=== PATIENT | male | born 1960 | race Caucasian/White ===

== ENCOUNTER → 2017-02-04 | Day surgery (SDC) | payer MEDICARE ==
[~2017-02-04] VITALS: Ht 175.2 cm; Wt 108.9 kg
[~2017-02-04] MED LIST: AUGMENTIN 875 M1 TAB PO; AUGMENTIN 875875 MG PO; AUGMENTIN XR 101 TER PO; CLARITIN10 MG PO; CYCLOBENZAPRINE10 MG PO; FLEXERIL5 MG PO; FLONASE ALLERG9.9 ML NAS; FLONASE0.05 MG/AC NS; LEVOFLOXACIN500 MG PO; MOTRIN800 MG PO; NKHM; OMEPRAZOLE40 MG PO; PREDNICOT20 MG PO; PREDNISONE10 MG PO; ROBITUSSIN DM 105 ML PO; ULTRAM50 MG PO; VENTOLIN H0.09 MG/AC INH; VICODIN 500 MG-1 TAB PO; VITAMIN D5000 I3 PO; ZYRTEC10 MG PO
--- NOTE | ~2017-02-04 | O ---
[place], [place] OPERATIVE NOTE NAME: ERICA WORTHY UNIT #: [id number] ROOM: DOCTOR: WANDA FORD MD BIRTHDATE: [birth year] DOS: 02/04/2017 GASTROENDOSCOPIC REPORT INDICATIONS: The patient has presented with multiple medical problems, among which has been hepatitis C and alcohol consumption epigastric distress. ALLERGIES: MORPHINE. PAST MEDICAL HISTORY: Vitamin D deficiency. PAST SURGICAL HISTORY: Left eye and cholecystectomy. PROCEDURE: Today's procedure part of investigation is panendoscopy and colonoscopy. PREMEDICATION: Versed and Diprivan. SCOPE: Olympus forward-viewing gastroscope Q10 video. REPORT: After putting the patient in the left lateral position and after application of lubricant to the scope, the scope was introduced. Thereafter, under direct visualization, I advanced through the length of esophagus without difficulty. Gastric pouch was entered. Evidence of diffuse gastritis superficial hemorrhagic gastritis noticed. Antral ulcer was identified. Duodenal bulb was entered multiple duodenal ulcers identified. Photographs of Antral biopsy obtained. The patient was gradually extubated and tolerated the procedure well. IMPRESSION: Superficial hemorrhagic gastritis, antral ulcer, multiple duodenal ulcers. PLAN AND DISCUSSION: Omeprazole 40 mg 1 daily and on the other hand we are going to proceed with colonoscopy. [place], [place] OPERATIVE NOTE NAME: ERICA WORTHY UNIT #: [id number] ROOM: DOCTOR: WANDA FORD MD BIRTHDATE: [birth year] WANDA FORD MD CM:OPRECORD:OPERATIVE NOTE 1538 [id number] WANDA FORD MD 02/04/17 1658 interface
--- NOTE | ~2017-02-04 | O ---
[place], [place] OPERATIVE NOTE NAME: ERICA WORTHY UNIT #: [id number] ROOM: DOCTOR: WANDA FORD MD BIRTHDATE: [birth year] DOS: 02/04/2017 GASTROENDOSCOPIC REPORT PROCEDURE: Today's procedure part of investigation is colonoscopy. PREMEDICATION: Versed and Diprivan. SCOPE: Olympus folding colonoscope 10L video. REPORT: After putting the patient in the left lateral position and after application of lubricant to the scope, the scope was introduced. Thereafter, under direct visualization, I advanced through the length of colon without difficulty. Base of the cecum explored, appendiceal orifice identified, and ileocecal valve was defined. Scope was gradually withdrawn from ascending, transverse, descending colon. Sessile polypoid lesion from the base of cecum has already been removed. Another polypoid lesion in the rectal pouch with the snare was entirely removed. The patient extubated tolerated the procedure well. IMPRESSION: Rectal pouch polyp, status post snare polypectomy. Sessile polypoid lesion cecal status post four piecemeal polypectomy. PLAN: High fiber diet management of ulcers and upper GI tract and clinical reassessment. WANDA FORD MD CM:OPRECORD:OPERATIVE NOTE 1538 170 WANDA FORD MD 02/04/17 1701 interface
[2017-02-04 13:00] VITALS: BP 136/69
[2017-02-04 15:32] VITALS: BP 117/70
[2017-02-04 15:47] VITALS: BP 117/75
[2017-02-04 16:02] VITALS: BP 111/54
== END | disposition home or self-care (01) ==
LOC: SDC 01-31 11:00
DX: D12.0 Benign neoplasm of cecum (principal); K62.1 Rectal polyp; K29.51 Unspecified chronic gastritis with bleeding; K25.9 Gastric ulcer, unspecified as acute or chronic, without hemorrhage or perforation; K26.9 Duodenal ulcer, unspecified as acute or chronic, without hemorrhage or perforation; K74.60 Unspecified cirrhosis of liver; B19.20 Unspecified viral hepatitis C without hepatic coma; E55.9 Vitamin D deficiency, unspecified; F17.210 Nicotine dependence, cigarettes, uncomplicated; F10.20 Alcohol dependence, uncomplicated

== ENCOUNTER 2017-03-26 01:37 | Emergency (ER) | payer MEDICARE ==
[~2017-03-26] VITALS: Ht 175.2 cm; Wt 107.5 kg
[2017-03-26 02:40] LABS: BILIRUBIN 2+ (NEGATIVE); BLOOD NEGATIVE (NEGATIVE); CLARITY SL CLOUDY (CLEAR); COLOR YELLOW (YELLOW); GLUCOSE NEGATIVE (NEGATIVE); KETONE TRACE (NEGATIVE); LEUKO ESTERASE NEGATIVE (NEGATIVE); NITRITE POSITIVE (NEGATIVE); PROTEIN 1+ (NEGATIVE); SPECIFIC GRAVITY 1.025 (1.005-1.030)
[2017-03-26 02:41] LABS: BASO # 0.1 10*3/uL (0.0-0.1); BASO % 0.7 % (0.0-1.0); EOS # 0.2 10*3/uL (0.0-0.4); EOS % 1.5 % (1.0-4.0); HEMATOCRIT 44.4 % (42.0-52.0); HEMOGLOBIN 14.9 g/dl (14.0-18.0); LYMPH % 9.4 % (27.0-41.0); MEAN CELL VOLUME 85.5 fl (80.0-94.0); MEAN CORPUSCULAR HGB 28.7 pg (27.0-31.0); MEAN CORPUSCULAR HGB CONC 33.6 g/dl (33.0-37.0); MEAN PLATELET VOLUME 11.1 fl (9.6-12.3); MONO # 0.5 10*3/uL (0.1-1.0); MONO % 4.9 % (3.0-9.0); NEUT # 8.6 10*3/uL (2.3-7.9); NEUT % 83.3 % (47.0-73.0); PLATELET COUNT AUTOMATED 105 10*3/uL (130-400); RED BLOOD COUNT 5.19 10*6/uL (4.50-5.90); RED CELL DISTRI WIDTH 14.5 % (0-14.5); WHITE BLOOD COUNT 10.3 10*3/uL (4.8-10.8)
[2017-03-26 02:57] LABS: ALBUMIN 3.8 gm/dl (3.1-4.5); ALKALINE PHOSPHATASE 137 U/L (45-117); BILIRUBIN, TOTAL 1.1 mg/dl (0.2-1.0); BUN 12 mg/dl (7-24); CARBON DIOXIDE 24 mmol/L (21-32); CHLORIDE 108 mmol/L (98-107); EST GLOM FILT AFRICAN AMERICAN > 60 ml/min; GLUCOSE 128 mg/dL (65-99); POTASSIUM 4.3 mmol/L (3.5-5.1); SGOT/AST 52 IU/L (3-35); SGPT/ALT 68 U/L (12-78); SODIUM 144 mmol/L (136-145); TOTAL PROTEIN 8.5 gm/dL (6.4-8.2)
[2017-03-26 02:58] LABS: MUCOUS 1+; RBC 0-2 rbc/hpf (0-2); WBC 0-2 wbc/hpf (0-5)
[2017-03-26 02:59] LABS: BACTERIA TRACE; URINE REFLEX COMMENT YES (NO)
== END 2017-03-26 05:24 | disposition home or self-care (01) ==
LOC: ED 01:37
PROVIDERS: Emergency Medicine
DX: K52.9 Noninfective gastroenteritis and colitis, unspecified (principal); E86.0 Dehydration; F17.200 Nicotine dependence, unspecified, uncomplicated; Z87.19 Personal history of other diseases of the digestive system; Z88.6 Allergy status to analgesic agent; Z79.899 Other long term (current) drug therapy

== ENCOUNTER → 2017-06-13 | Outpatient (CLI) | payer MEDICARE | END | disposition home or self-care (01) | LOC: RESCLI 01:41 | DX: K21.9 Gastro-esophageal reflux disease without esophagitis (principal); J06.9 Acute upper respiratory infection, unspecified; B97.89 Other viral agents as the cause of diseases classified elsewhere; F17.200 Nicotine dependence, unspecified, uncomplicated; E66.01 Morbid (severe) obesity due to excess calories; Z71.6 Tobacco abuse counseling; Z90.49 Acquired absence of other specified parts of digestive tract ==

== ENCOUNTER 2017-06-20 14:46 | Inpatient (IN) | payer MEDICARE ==
[~2017-06-20] VITALS: Ht 175.2 cm; Wt 113.9 kg
--- NOTE | ~2017-06-20 | ST ---
[place], [place] EXERCISE STRESS TEST REPORT [facility]: [facility] [id number] UNIT #: [id number] ROOM: 407 DOCTOR: REMEDIOS PARTIDA MD BIRTHDATE: [birth year] DOS: 06/22/2017 INDICATION: Chest pain. PROCEDURE: The patient was exercised on a modified Levi protocol, the patient exercised for 6 minutes and 30 seconds. Test was terminated due to achievement of stress test and end of Lexiscan injection. No complaint of chest pain, chest pressure, heaviness or tightness. BLOOD PRESSURE RESPONSE: Resting blood pressure 110/68 with ending blood pressure 140/68. ELECTROCARDIOGRAM INTERPRETATION: The resting electrocardiogram showing sinus bradycardia, heart rate of 52. There is poor R wave progression. At the peak of the stress test, there was no evidence of any significant ST or T-wave changes suggestive of myocardial ischemia. No arrhythmias were noted. SUMMARY: 1. Adequate walking Lexiscan stress test. 2. Negative Lexiscan stress test for stress induced myocardial ischemia. 3. No arrhythmias were noted. 4. Stable O2 saturation with exercise. 5. Myoview results will be reported separately. REMEDIOS PARTIDA MD CM:STRESS:EXERCISE STRESS TEST REPORT 1032 [id number] REMEDIOS PARTIDA MD
--- NOTE | ~2017-06-20 | PR ---
[place], [place] PROGRESS NOTE NAME: ERICA WORTHY UNIT #: [id number] ROOM: 407 DOCTOR: REMEDIOS PARTIDA MD BIRTHDATE: [birth year] DOS: SUBJECTIVE: The patient is today seen in the stress lab, apparently he has significant improvement from yesterday. He has continued to cough which is nonproductive. It is almost complete resolution of his chest pain and heaviness. His shortness of breath significantly improved. No symptomatic palpitation. OBJECTIVE: VITAL SIGNS: Blood pressure 102/50, heart rate 55, respiratory rate of 18, temperature 98.3. NECK: Good upstroke, no bruit. HEART: S1, S2 with no rub. LUNGS: Clear to auscultation, slight decrease in air movement. LOWER EXTREMITIES: There is mild ankle edema. LABORATORY DATA: White count 9.1. There are 90% neutrophils. Potassium 4.1, magnesium 2.4, troponin less than 0.015 x 3. ASSESSMENT AND PLAN: Presentation with chest pain, so far, cardiac enzymes have been negative. The patient continued to cough. There is significant improvement while on antibiotics. I will proceed to re-oral as sed rate and CRP to confirm patient's infectious status. Patient today walked on a modified Levi protocol in the stress level. He was able to walk for 6 minutes and 30 seconds without any provoked cardiac arrhythmias or EKG changes. His O2 sat state above 95% with activity. As noted above, the patient reported significant improvement on his symptoms with antibiotics. No worsening chest pain. His vital sign does not allow any introduction of repair of any medications such as beta-kwaku or nitrites. Enteric-coated aspirin 81 mg should be held in view of patient's low platelets. Smoking cessation was emphasized. Sleep study is recommended as an outpatient. The patient can be discharged home should the stress test. Should the nuclear images be normal. Followup can be in outpatient within 2-3 months or earlier should there be any recurrence of his complaints. [place], [place] PROGRESS NOTE NAME: ERICA WORTHY UNIT #: [id number] ROOM: 407 DOCTOR: REMEDIOS PARTIDA MD BIRTHDATE: [birth year] REMEDIOS PARTIDA MD CM:NANCY 1030 17 REMEDIOS PARTIDA MD 06/22/172117 interface
--- NOTE | ~2017-06-20 | CON ---
[place], [place] REPORT OF CONSULTATION NAME: ERICA WORTHY UNIT #: [id number] ROOM: 407 DOCTOR: REMEDIOS PARTIDA MD BIRTHDATE: [birth year] DOS: ADDENDUM. The patient was seen and evaluated by myself. Notes and labs were reviewed. The above assessment and plan were done under my direct participation. 1. The patient's chest pain, most likely shortness of breath and possible pneumonia. 2. Sed rate will be ordered along with CRP. 3. Echocardiogram with a stress test will be done in a.m. walking on a modified Levi protocol with O2 sat check. 4. Smoking cessation is vital. 5. Sleep study is recommended as an outpatient. REMEDIOS PARTIDA MD CM:CONSTR:REPORT OF CONSULTATION 1027 06/23/17 1611 interface
[2017-06-20 15:00] VITALS: BP 110/61
[2017-06-20 15:36] LABS: BASO # 0.1 10*3/uL (0.0-0.1); BASO % 0.7 % (0.0-1.0); EOS # 0.2 10*3/uL (0.0-0.4); EOS % 2.8 % (1.0-4.0); HEMATOCRIT 37.5 % (42.0-52.0); HEMOGLOBIN 12.3 g/dl (14.0-18.0); LYMPH % 28.2 % (27.0-41.0); MEAN CELL VOLUME 87.8 fl (80.0-94.0); MEAN CORPUSCULAR HGB 28.8 pg (27.0-31.0); MEAN CORPUSCULAR HGB CONC 32.8 g/dl (33.0-37.0); MEAN PLATELET VOLUME 11.4 fl (9.6-12.3); MONO # 0.6 10*3/uL (0.1-1.0); MONO % 7.6 % (3.0-9.0); NEUT # 4.4 10*3/uL (2.3-7.9); NEUT % 60.3 % (47.0-73.0); PLATELET COUNT AUTOMATED 100 10*3/uL (130-400); RED BLOOD COUNT 4.27 10*6/uL (4.50-5.90); RED CELL DISTRI WIDTH 14.3 % (0-14.5); WHITE BLOOD COUNT 7.2 10*3/uL (4.8-10.8)
[2017-06-20 15:49] LABS: ACT PARTIAL THROMBO TIME 26.9 SECONDS (20.8-31.5)
[2017-06-20 15:55] LABS: ALBUMIN 3.1 gm/dl (3.1-4.5); ALKALINE PHOSPHATASE 111 U/L (45-117); BUN 13 mg/dl (7-24); CHLORIDE 109 mmol/L (98-107); CREATININE 0.94 mg/dL (0.70-1.30); MAGNESIUM 2.5 mg/dL (1.5-2.1); POTASSIUM 4.3 mmol/L (3.5-5.1); SGOT/AST 32 IU/L (3-35); SGPT/ALT 26 U/L (12-78); SODIUM 141 mmol/L (136-145)
[2017-06-20 15:58] LABS: TROPONIN I < 0.015 ng/ml (<0.045)
[2017-06-20 16:00] VITALS: BP 122/64
[2017-06-20 18:00] VITALS: BP 122/64
[2017-06-20 18:20] VITALS: BP 122/64
--- NOTE | 2017-06-20 18:38 | NUR ---
A 57, admitted to , under the services of MICHAEL Angel DO with a diagnosis of chest pain. Chief complaint is chest pain. Patient arrived via bed from ER. Monitor applied. Initial assessment completed. Vital signs taken and recorded. MICHAEL ANGEL DO notified of admission to the unit. Orders received. See assessment for past medical history, medications and allergies. Patient and/or family oriented to unit. [facility]. Clothing/patient valuable form completed. YANICK MOODY
[2017-06-20 20:00] VITALS: BP 111/63
[2017-06-21] VITALS: BP 103/62
[2017-06-21 07:05] LABS: HEMATOCRIT 38.7 % (42.0-52.0); HEMOGLOBIN 12.7 g/dl (14.0-18.0); MEAN CELL VOLUME 87.6 fl (80.0-94.0); MEAN CORPUSCULAR HGB 28.7 pg (27.0-31.0); MEAN CORPUSCULAR HGB CONC 32.8 g/dl (33.0-37.0); MEAN PLATELET VOLUME 12.3 fl (9.6-12.3); PLATELET COUNT AUTOMATED 95 10*3/uL (130-400); RED BLOOD COUNT 4.42 10*6/uL (4.50-5.90); RED CELL DISTRI WIDTH 14.1 % (0-14.5); WHITE BLOOD COUNT 9.1 10*3/uL (4.8-10.8)
[2017-06-21 07:33] LABS: BUN 15 mg/dl (7-24); CHLORIDE 107 mmol/L (98-107); CREATININE 0.97 mg/dL (0.70-1.30); MAGNESIUM 2.4 mg/dL (1.5-2.1); POTASSIUM 4.1 mmol/L (3.5-5.1); SODIUM 140 mmol/L (136-145)
[2017-06-21 07:36] LABS: BASOPHILS 1 % (0-1); TOTAL CELLS COUNTED 100 #CELLS
[2017-06-21 07:37] LABS: PLATELET SUFFICIENCY LOW (NORMAL)
[2017-06-21 07:44] LABS: ACT PARTIAL THROMBO TIME 24.3 SECONDS (20.8-31.5); INTERNATIONAL NORM RATIO 1.1 (2.0-3.5)
[2017-06-21 08:00] VITALS: BP 104/66
--- NOTE | 2017-06-21 08:01 | NUR ---
Requested and medicated with Tylenol at 0220 for complaints of chest pain from cough, and JOLLY rating pain as a 6-7/10. Tylenol effective to decrease pain to a 5/10. Will continue to monitor.
--- NOTE | 2017-06-21 09:00 | NUR ---
Music Engraver in to talk to patient. Patient states lives at home with alone. There are no steps in the home. Physician: ezekiel grant Pharmacy: [facility] health services: none Patient's level of ADLs: INDEPENDENT Patient has working utilities: all working DME: none Follow-up physician's appointment after d/c: will be made by hospitalist nurse director upon discharge Does patient want to access PORTAL?: no Discharge plan discussed with patient, patient lives at home alone, is independent in adls and ambulation, doesn't drive, but has family that takes him where every he needs to go. patient states he will be going back home and denies any home needs. SIMON FISH
--- NOTE | 2017-06-21 09:55 | NUR ---
CALLED DR. GRACIA OFFICE REGARDING CONSULT NO NOTE ENTERED THAT THEY WERE INFORMED AND THEY STATED THE PATIENT WAS ON THE LIST TO BE SEEN.
[2017-06-21 12:00] VITALS: BP 120/56
--- NOTE | 2017-06-21 13:05 | NUR ---
ABG'S DRAWN UNDER SUPERVISION OF MAYLIN KING. RIGHT RADIAL, PT ON ROOM AIR, TEMP 98.3. PT TOLERATED WELL.
[2017-06-21 13:18] LABS: ABG BASE EXCESS -2.7 mmol/L (-2.0-2.0); ARTERIAL BLOOD GAS PCO2 29.9 mmHg (35-45); ARTERIAL BLOOD GAS PH 7.441 (7.35-7.45); ARTERIAL BLOOD GAS PO2 63.1 mmHg (80-90)
[2017-06-21 16:40] VITALS: BP 133/56
[2017-06-21 20:00] VITALS: BP 113/44
--- NOTE | 2017-06-21 20:10 | NUR ---
1942 RESTING IN BED WITH HOB ELEVATED. TALKING WITH VISITOR. HEP LOCK INTACT. NO DISTRESS NOTED. NO C/O'S VOICED AT PRESENT. AWARE OF STRESS TEST TO BE DONE IN AM.
--- NOTE | 2017-06-21 22:06 | NUR ---
RESTING IN BED WITHOUT C/O'S. VS STABLE. CONDITION GUARDED.
[2017-06-22] VITALS: BP 126/66
--- NOTE | 2017-06-22 07:43 | NUR ---
PT HR 40'S. MANAGER SOCIAL RESPONSIBILITY AWARE OF BRADYCARDIA. PT RESTING WITH EYES CLOSED. AWAKENED AND HR GOES UP TO 50-60S. PT FOR STRESS TEST TODAY. WILL CONT TO MONITOR.
[2017-06-22 08:00] VITALS: BP 102/50
--- NOTE | 2017-06-22 09:37 | NUR ---
case management visits with patient, patient denies any home needs
--- NOTE | 2017-06-22 10:00 | NUR ---
INFORMED CONSENT SIGNED FOR A MODIFIED YURIY PROTOCOL WITH A CONTINUOUS PULSE OX WITH DR PARTIDA. RESTING EKG SB WITH A SUPINE HR OF 52 AND BP 110/68. STANDING HR 49 WITH A BP OF 104/62. POX 92-94% BETWEEN BOTH. PT COMPLETED 30 SECONDS OF STAGE III. NO CHANGE IN SPEED OF 1.7 AND GRADE 5%. LEXISCAN GIVEN AT 1:16 OF STAGE II. REACHED A PEAK HR OF 110 WHICH IS 66% OF PRECTED MAX WITH A BP OF 140/70. TEST TERMINATED DUE TO PHYSICIAN DISCRETION AND SOB. CONTINUOUS PULSE OX FOR 96-97%. LAST RECOVERY HR 75 WITH A BP OF 140/70. AWAIITING NUCLEAR IMAGING IN STABLE CONDITION.
[2017-06-22 12:00] VITALS: BP 128/67
[2017-06-22] MEDS ORDERED: VITAMIN D31000 UNI1 PO (14:09)
[2017-06-22] MEDS ORDERED: PREDNISONE10 MG PO (14:09)
--- NOTE | 2017-06-22 14:35 | NUR ---
PT DISCHARGED AT THIS TIME. IV REMOVED AND PRESSURE DRESSING APPLIED. HEART MONITOR RETURNED TO FLOOR. VERBALIZED UNDERSTANDING OF DISCHARGE INSTRUCTIONS.
== END 2017-06-22 14:35 | disposition home or self-care (01) | DRG 280 ==
LOC: ED 14:46 → 4E 17:22 → EDHOLD 17:22 → 4E 17:31
PROVIDERS: Family Medicine; Internal Medicine Hospice and Palliative Medicine; Nurse Practitioner Family; ADMIT Internal Medicine
PROC: 4A02XM4 Measurement of Cardiac Total Activity, External Approach (ICD-10-PCS; principal; 2017-06-22)
PROC: 3E073KZ Introduction of Other Diagnostic Substance into Coronary Artery, Percutaneous Approach (ICD-10-PCS; principal; 2017-06-22)
DX: I21.3 ST elevation (STEMI) myocardial infarction of unspecified site (principal); J18.9 Pneumonia, unspecified organism; E44.0 Moderate protein-calorie malnutrition; K70.30 Alcoholic cirrhosis of liver without ascites; K21.9 Gastro-esophageal reflux disease without esophagitis; R09.1 Pleurisy; F41.9 Anxiety disorder, unspecified; E66.9 Obesity, unspecified; R07.89 Other chest pain; D64.9 Anemia, unspecified; H54.0 Blindness, both eyes; E83.41 Hypermagnesemia; F17.210 Nicotine dependence, cigarettes, uncomplicated; N20.0 Calculus of kidney; F15.10 Other stimulant abuse, uncomplicated; Z88.6 Allergy status to analgesic agent; Z71.6 Tobacco abuse counseling; Z68.37 Body mass index [BMI] 37.0-37.9, adult; Z79.899 Other long term (current) drug therapy; Z87.898 Personal history of other specified conditions; Z90.49 Acquired absence of other specified parts of digestive tract

== ENCOUNTER → 2017-06-29 | Outpatient (CLI) | payer MEDICARE ==
[~2017-06-29] MED LIST changes: +VITAMIN D31000 UNI1 PO
== END | disposition home or self-care (01) ==
LOC: RESCLI 02:24
DX: K21.9 Gastro-esophageal reflux disease without esophagitis (principal); E66.9 Obesity, unspecified; E55.9 Vitamin D deficiency, unspecified; K70.30 Alcoholic cirrhosis of liver without ascites; J45.909 Unspecified asthma, uncomplicated; Z71.6 Tobacco abuse counseling; Z72.0 Tobacco use

== ENCOUNTER → 2017-10-25 | Outpatient (CLI) | payer MEDICARE | END | disposition home or self-care (01) | LOC: RESCLI 03:56 | DX: J02.9 Acute pharyngitis, unspecified (principal); R68.89 Other general symptoms and signs; J06.9 Acute upper respiratory infection, unspecified; K21.9 Gastro-esophageal reflux disease without esophagitis; Z88.6 Allergy status to analgesic agent ==

== ENCOUNTER 2018-01-19 17:50 | Emergency (ER) | payer MEDICARE ==
[~2018-01-19] VITALS: Ht 175.2 cm; Wt 113.4 kg
[2018-01-19] MEDS ORDERED: PROVENTIL HFA6.7 GM INH (17:59)
== END 2018-01-19 18:06 | disposition home or self-care (01) ==
LOC: ED 17:50
DX: H57.8 Other specified disorders of eye and adnexa (principal); H57.12 Ocular pain, left eye; Z90.49 Acquired absence of other specified parts of digestive tract; Z98.890 Other specified postprocedural states; Z79.899 Other long term (current) drug therapy; Z88.5 Allergy status to narcotic agent

== ENCOUNTER 2018-06-18 03:50 | Emergency (ER) | payer MEDICARE ==
[~2018-06-18] VITALS: Ht 175.2 cm; Wt 103.4 kg
[~2018-06-18 03:50] MED LIST changes: +PROVENTIL HFA6.7 GM INH
[2018-06-18 04:11] LABS: BASO # 0.1 10*3/uL (0.0-0.1); BASO % 0.7 % (0.0-1.0); EOS # 0.2 10*3/uL (0.0-0.4); EOS % 2.1 % (1.0-4.0); HEMATOCRIT 39.2 % (42.0-52.0); HEMOGLOBIN 13.4 g/dl (14.0-18.0); LYMPH # 2.3 10*3/uL (1.3-4.4); LYMPH % 25.9 % (27.0-41.0); MEAN CELL VOLUME 85.8 fl (80.0-94.0); MEAN CORPUSCULAR HGB 29.3 pg (27.0-31.0); MEAN CORPUSCULAR HGB CONC 34.2 g/dl (33.0-37.0); MEAN PLATELET VOLUME 10.3 fl (9.6-12.3); MONO # 0.5 10*3/uL (0.1-1.0); MONO % 5.2 % (3.0-9.0); NEUT # 5.8 10*3/uL (2.3-7.9); NEUT % 65.9 % (47.0-73.0); PLATELET COUNT AUTOMATED 85 10*3/uL (130-400); RED BLOOD COUNT 4.57 10*6/uL (4.50-5.90); WHITE BLOOD COUNT 8.9 10*3/uL (4.8-10.8)
[2018-06-18 04:22] LABS: ACT PARTIAL THROMBO TIME 25.9 SECONDS (20.8-31.5)
[2018-06-18 04:27] LABS: ALBUMIN 3.5 gm/dl (3.1-4.5); ALKALINE PHOSPHATASE 104 U/L (45-117); BUN 7 mg/dl (7-24); CHLORIDE 110 mmol/L (98-107); CREATININE 0.92 mg/dL (0.70-1.30); LIPASE 145 U/L (73-393); POTASSIUM 3.8 mmol/L (3.5-5.1); SGOT/AST 37 IU/L (3-35); SGPT/ALT 39 U/L (12-78); SODIUM 143 mmol/L (136-145); TOTAL PROTEIN 7.4 gm/dL (6.4-8.2)
[2018-06-18] MEDS ORDERED: ALA-CORT28.4 GM T (06:19)
== END 2018-06-18 06:23 | disposition home or self-care (01) ==
LOC: ED 03:50
PROVIDERS: Student in an Organized Health Care Education/Training Program
DX: R10.9 Unspecified abdominal pain (principal); R11.0 Nausea; R21 Rash and other nonspecific skin eruption; K21.9 Gastro-esophageal reflux disease without esophagitis; E66.9 Obesity, unspecified; Z87.891 Personal history of nicotine dependence; Z88.6 Allergy status to analgesic agent

== ENCOUNTER 2020-03-29 03:12 | Emergency (ER) | payer OTHER ==
[~2020-03-29] VITALS: Ht 175.2 cm; Wt 97.5 kg
[~2020-03-29 03:12] MED LIST changes: +ALA-CORT28.4 GM T; +VISTARIL25 MG PO
[2020-03-29] MEDS ORDERED: NORCO 10-325 T1 EACH PO (10:10)
[2020-03-29] MEDS ORDERED: MEDROL DOSEPAK4 MG PO (10:10)
[2020-03-29] MEDS ORDERED: CYCLOBENZAPRINE10 MG PO (10:11)
== END 2020-03-29 10:15 | disposition home or self-care (01) ==
LOC: ED 03:12
DX: M54.5 Low back pain (principal); G89.29 Other chronic pain; K21.9 Gastro-esophageal reflux disease without esophagitis; F17.200 Nicotine dependence, unspecified, uncomplicated; Z88.5 Allergy status to narcotic agent; Z79.899 Other long term (current) drug therapy

== ENCOUNTER → 2021-09-28 | Outpatient (CLI) | payer OTHER ==
[~2021-09-28] MED LIST changes: +MEDROL DOSEPAK4 MG PO; +NORCO 10-325 T1 EACH PO
== END | disposition home or self-care (01) ==
LOC: COVID19 15:36
PROVIDERS: ATTEND Student in an Organized Health Care Education/Training Program
DX: Z11.52 Encounter for screening for COVID-19 (principal)

== ENCOUNTER 2023-04-15 10:41 | Inpatient (IN) | payer OTHER ==
[2023-04-15] VITALS (8 sets, daily range): BP systolic 111–139; BP diastolic 55–78
[~2023-04-15] VITALS: Ht 175.3 cm; Wt 105.9 kg
[2023-04-15 11:26] LABS: BASO # 0.1 10*3/uL (0.0-0.1); BASO % 1.1 % (0.0-1.0); EOS # 0.2 10*3/uL (0.0-0.4); EOS % 3.2 % (1.0-4.0); HEMATOCRIT 39.9 % (42.0-52.0); LYMPH # 1.1 10*3/uL (1.3-4.4); LYMPH % 22.9 % (27.0-41.0); MEAN CELL VOLUME 85.6 fl (80.0-94.0); MEAN CORPUSCULAR HGB 29.6 pg (27.0-31.0); MEAN CORPUSCULAR HGB CONC 34.6 g/dl (33.0-37.0); MEAN PLATELET VOLUME 10.9 fl (9.6-12.3); MONO # 0.3 10*3/uL (0.1-1.0); MONO % 6.7 % (3.0-9.0); NEUT # 3.1 10*3/uL (2.3-7.9); NEUT % 65.9 % (47.0-73.0); PLATELET COUNT AUTOMATED 78 10*3/uL (130-400); RED BLOOD COUNT 4.66 10*6/uL (4.50-5.90); RED CELL DISTRI WIDTH 14.1 % (0-14.5); WHITE BLOOD COUNT 4.8 10*3/uL (4.8-10.8)
[2023-04-15 11:34] LABS: ACT PARTIAL THROMBO TIME 30.2 SECONDS (20.0-32.1); INTERNATIONAL NORM RATIO 1.1 (2.0-3.5)
[2023-04-15 11:54] LABS: ALKALINE PHOSPHATASE 103 U/L (46-116); BUN 11 mg/dl (9-23); CHLORIDE 109 mmol/L (98-107); LIPASE 40 U/L (12-53); POTASSIUM 3.7 mmol/L (3.4-5.1); SGPT/ALT 51 U/L (10-49); TOTAL PROTEIN 6.9 gm/dL (6.0-8.0)
[2023-04-16] VITALS: BP 121/66
[2023-04-16 06:26] LABS: BASO % 0.9 % (0.0-1.0); EOS # 0.2 10*3/uL (0.0-0.4); EOS % 3.6 % (1.0-4.0); HEMATOCRIT 42.2 % (42.0-52.0); LYMPH # 1.1 10*3/uL (1.3-4.4); LYMPH % 24.7 % (27.0-41.0); MEAN CELL VOLUME 87.4 fl (80.0-94.0); MEAN CORPUSCULAR HGB 28.8 pg (27.0-31.0); MEAN CORPUSCULAR HGB CONC 32.9 g/dl (33.0-37.0); MEAN PLATELET VOLUME 11.3 fl (9.6-12.3); MONO # 0.3 10*3/uL (0.1-1.0); MONO % 6.8 % (3.0-9.0); NEUT # 2.8 10*3/uL (2.3-7.9); NEUT % 63.8 % (47.0-73.0); PLATELET COUNT AUTOMATED 75 10*3/uL (130-400); RED BLOOD COUNT 4.83 10*6/uL (4.50-5.90); WHITE BLOOD COUNT 4.4 10*3/uL (4.8-10.8)
[2023-04-16 06:33] LABS: ALKALINE PHOSPHATASE 101 U/L (46-116); BUN 10 mg/dl (9-23); CHLORIDE 106 mmol/L (98-107); CHOLESTEROL 193 mg/dL (<200); FREE T4 0.59 ng/dl (0.89-1.76); LDL CHOLESTEROL 127 mg/dL (9-159); POTASSIUM 3.9 mmol/L (3.4-5.1); SGPT/ALT 48 U/L (10-49); TOTAL PROTEIN 6.7 gm/dL (6.0-8.0); TRIGLYCERIDES 150 mg/dl (<150)
[2023-04-16 08:00] VITALS: BP 136/61
[2023-04-16 12:00] VITALS: BP 125/56
[2023-04-16 16:00] VITALS: BP 136/78
== END 2023-04-16 19:15 | disposition home or self-care (01) | DRG 206 ==
LOC: ED 10:41 → 4E 15:44 → EDHOLD 15:44 → 4E 20:44
PROVIDERS: Emergency Medicine; Student in an Organized Health Care Education/Training Program; ADMIT Family Medicine; ATTEND Family Medicine
DX: M94.0 Chondrocostal junction syndrome [Tietze] (principal); M25.562 Pain in left knee; R00.1 Bradycardia, unspecified; D69.6 Thrombocytopenia, unspecified; R74.01 Elevation of levels of liver transaminase levels; E87.8 Other disorders of electrolyte and fluid balance, not elsewhere classified; K21.9 Gastro-esophageal reflux disease without esophagitis; E55.9 Vitamin D deficiency, unspecified; K74.60 Unspecified cirrhosis of liver; E66.01 Morbid (severe) obesity due to excess calories; G47.33 Obstructive sleep apnea (adult) (pediatric); I44.7 Left bundle-branch block, unspecified; D64.9 Anemia, unspecified; F17.210 Nicotine dependence, cigarettes, uncomplicated; Z88.5 Allergy status to narcotic agent; Z80.3 Family history of malignant neoplasm of breast; Z79.1 Long term (current) use of non-steroidal anti-inflammatories (NSAID); Z90.49 Acquired absence of other specified parts of digestive tract; Z79.899 Other long term (current) drug therapy; Z68.34 Body mass index [BMI] 34.0-34.9, adult; Z71.6 Tobacco abuse counseling

== ENCOUNTER → 2023-05-03 | Outpatient (CLI) | payer OTHER | END | disposition home or self-care (01) | LOC: RESCLI 01:01 | PROVIDERS: ATTEND Internal Medicine | DX: L73.9 Follicular disorder, unspecified (principal); K21.9 Gastro-esophageal reflux disease without esophagitis; Z90.49 Acquired absence of other specified parts of digestive tract; F10.90 Alcohol use, unspecified, uncomplicated; E66.9 Obesity, unspecified; Z98.890 Other specified postprocedural states; F17.210 Nicotine dependence, cigarettes, uncomplicated; Z88.5 Allergy status to narcotic agent; Z79.899 Other long term (current) drug therapy ==

== ENCOUNTER → 2023-05-17 | Outpatient (CLI) | payer OTHER | END | disposition home or self-care (01) | LOC: US 00:58 | PROVIDERS: ATTEND Emergency Medicine | DX: K70.30 Alcoholic cirrhosis of liver without ascites (principal); Z90.49 Acquired absence of other specified parts of digestive tract ==

== ENCOUNTER → 2023-06-21 | Outpatient (CLI) | payer MEDICARE | END | disposition home or self-care (01) | LOC: RESCLI 15:48 | PROVIDERS: ATTEND Internal Medicine | DX: B34.9 Viral infection, unspecified (principal); F17.210 Nicotine dependence, cigarettes, uncomplicated; Z88.5 Allergy status to narcotic agent; F10.90 Alcohol use, unspecified, uncomplicated; Z98.890 Other specified postprocedural states; Z79.899 Other long term (current) drug therapy ==

== ENCOUNTER → 2023-08-16 | Outpatient (CLI) | payer OTHER | END | disposition home or self-care (01) | LOC: RESCLI 02:05 | PROVIDERS: ATTEND Student in an Organized Health Care Education/Training Program | DX: L30.9 Dermatitis, unspecified (principal); R91.1 Solitary pulmonary nodule; K21.9 Gastro-esophageal reflux disease without esophagitis; F17.210 Nicotine dependence, cigarettes, uncomplicated; Z88.5 Allergy status to narcotic agent; Z98.890 Other specified postprocedural states; Z90.49 Acquired absence of other specified parts of digestive tract; Z79.899 Other long term (current) drug therapy ==

== ENCOUNTER 2023-09-04 22:45 | Emergency (ER) | payer OTHER ==
[~2023-09-04] VITALS: Ht 175.2 cm; Wt 108.9 kg
[2023-09-04] MEDS ORDERED: AVPAK AZITHROM250 M1 PO (23:55)
== END 2023-09-05 01:26 | disposition home or self-care (01) ==
LOC: ED 22:45
DX: J32.9 Chronic sinusitis, unspecified (principal); Z20.822 Contact with and (suspected) exposure to COVID-19; Z88.5 Allergy status to narcotic agent; Z90.49 Acquired absence of other specified parts of digestive tract; Z98.890 Other specified postprocedural states; F17.290 Nicotine dependence, other tobacco product, uncomplicated